=== PATIENT | male | born 1990 | race African-American/Black ===

== ENCOUNTER 2022-03-04 17:10 | Emergency (ER) | payer SELFPAY ==
--- OUTSIDE RECORDS SUMMARY | 2022-03-04 17:14 | XMS REPORT | Continuity of Care Document ---
:1990 Author Organization [facility] t Address [address] [place] [address] Care Team Providers Name Role Phone Asked, No Pcp Primary Care Physician Unavailable FRANNIE HESS Attending Clinician Unavailable Payers Payer Name Policy Type Policy Number Effective Date Expiration Date S ource Problems This patient has no known problems. Allergies, Adverse Reactions, Alerts This patient has no known allergies or adverse reactions. Social History Social Habit Start Date Stop Date Quantity Comments Source History [facility] History of tobacco Smokes tobacco [facility] Cigarettes smoked 2020-10-20 2020-10-20 [facility] current (pack per 00:00:00 00:00:00 Hospita l day) - Reported Tobacco use and 2020-10-20 2020-10-20 Smokeless tobacco [facility] exposure 00:00:00 00:00:00 non-user Hospital Alcohol intake 2020-10-20 2020-10-20 [facility]00 [facility]-drinker Hospital (finding) History [facility] 2020-10-20 2020-10-20 [facility] Frequency 00:00:00 00:00:00 Hospita l Sex Assigned At [birth year] [facility] 00[facility]00 Hospital Smoking Status Start Date Stop Date Source Smokes tobacco daily 2020-10-20 00:00:00 [facility] Medications This patient has no known medications. Procedures This patient has no known procedures. Plan of Care Planned Activity Planned Date Details Comments Source Future Scheduled 2022-02-10 HEPATITIS B VACCINES Met [facility] Test 23:18:12 (1 of 3 - 3-dose series) [code = HEPATITIS B VACCINES (1 of 3 - 3-dose series)] Future Scheduled 2022-02-10 COVID-19 VACCINE (#1) [facility] Test 23:18:12 [code = COVID-19 VACCINE (#1)] Future Scheduled 2022-02-10 Pneumococcal Vaccine: [facility] Test 23:18:12 Pediatrics (0 to 5 Years) and At-Risk Patients (6 to 64 Years) (1 - PCV) [code = Pneumococcal Vaccine: Pediatrics (0 to 5 Years) and At-Risk Patients (6 to 64 Years) (1 - PCV)] Future Scheduled 2022-02-10 Hepatitis C screening [facility] Test 23:18:12 (procedure) [code = 675329180] Future Scheduled 2022-02-10 INFLUENZA VACCINE Method [facility] Test 23:18:12 [code = INFLUENZA VACCINE] Encounters Start End Encounter Admission Attending Care Care Encounter Source Date/Time Date/Time Type Type Clinicians Facility Department ID 2021-04-29 Outpatient [facility] [id number] [place] 17:43:01 [id number] [facility] 2021-05-16 2021-05-16 Outpatient [facility] [id number] [place] 00:00:00 00:00:[address] 2021-01-26 2021-01-26 Emergency [facility] [id number] [place] 00:00:00 00:00:[address] 2020-10-20 2020-10-20 Emergency JIMENA [facility] [id number] [place] 00:00:00 00:00:00 FRANNIE [address] Results This patient has no known results.
--- NOTE | 2022-03-04 19:37 | ER ---
Nurse's Notes [facility] Name: Juan Cutler Age: 31 yrs Sex: Male : 1990 Arrival Date: 03/04/2022 Time: 17:15 Bed IW1 Private MD: Diagnosis: Encounter for screening, unspecified Presentation: 03/04 18:14 Chief complaint: Patient states: "I am on hormone therapy because I am trans and I've aa5 been having hot flashes for the last 5 years and my doctor in [place] had me on some medication for it but I just moved down here so I don't have that medication that helped with the hot flashes any more". Coronavirus screen: At this time, the client does not indicate any symptoms associated with coronavirus-19. Ebola Screen: Patient denies travel to an Ebola-affected area in the 21 days before illness onset. Initial Sepsis Screen: Does the patient meet any 2 criteria? No. Patient's initial sepsis screen is negative. Does the patient have a suspected source of infection? No. Patient's initial sepsis screen is negative. Risk Assessment: Do you want to hurt yourself or someone else? Patient reports no desire to harm self or others. Onset of symptoms was February 2022. 18:14 Method Of Arrival: Ambulatory aa5 18:14 Acuity: MICKY 5 aa5 Triage Assessment: 19:50 General: Appears in no apparent distress. comfortable, Behavior is calm, cooperative, bm7 appropriate for age. Pain: Denies pain. EENT: No deficits noted. No signs and/or symptoms were reported regarding the EENT system. Neuro: No deficits noted. Cardiovascular: No deficits noted. Respiratory: No deficits noted. GI: No deficits noted. No signs and/or symptoms were reported involving the gastrointestinal system. : No deficits noted. No signs and/or symptoms were reported regarding the genitourinary system. Derm: No deficits noted. No signs and/or symptoms reported regarding the dermatologic system. Musculoskeletal: No deficits noted. No signs and/or symptoms reported regarding the musculoskeletal system. Historical: - Allergies: 18:17 No Known Allergies; aa5 - PMHx: 18:17 Diabetes mellitus; Hypertensive disorder; aa5 - PSHx: 18:17 None; aa5 - Immunization history:: Adult Immunizations unknown. - Social history:: Smoking status: Patient reports the use of cigarette tobacco products, smokes one-half pack cigarettes per day. Screenin:24 Abuse screen: Denies threats or abuse. Nutritional screening: No deficits noted. bm7 Tuberculosis screening: No symptoms or risk factors identified. Fall Risk None identified. Assessment: 19:24 Reassessment: I havent had my estrogen in a long time and so now I am having night bm7 sweats and hot flashes. I am transition ing stated by the patient while being assessed by the PA. 19:51 Reassessment: No changes from previously documented assessment. bm7 Vital Signs: 18:14 BP 119 / 71; Pulse 70; Resp 18 S; Temp 97.0(TE); Pulse Ox 100% on R/A; Weight 142.88 kg aa5 (R); Height 6 ft. 2 in. (187.96 cm) (R); 18:14 Body Mass Index 40.44 (142.88 kg, 187.96 cm) aa5 ED Course: 17:15 Patient arrived in ED. rg4 17:20 Chandrakant Mackay PA is PHCP. cp 17:20 Chandrakant Parada MD is Attending Physician. cp 18:14 Arm band placed on. aa5 18:17 Triage completed. aa5 19:24 Patient has correct armband on for positive identification. bm7 19:24 No provider procedures requiring assistance completed. Patient maintains SpO2 bm7 saturation greater than 95% on room air. 19:51 Patient did not have IV access during this emergency room visit. bm7 Administered Medications: No medications were administered Medication: 19:24 VIS not applicable for this client. bm7 Outcome: 19:36 Discharge ordered by . cp 19:51 Discharged to home ambulatory. bm7 19:51 Condition: good 19:51 Discharge instructions given to patient, Instructed on discharge instructions, follow up and referral plans. medication usage, Demonstrated understanding of instructions, follow-up care, medications, Prescriptions given X 1. 19:51 Patient left the ED. bm7 Signatures: Marley Moser, RN RN aa5 Chandrakant Mackay PA PA Elizabeth Fernandes rg4 Laly Juarez RN RN bm7
--- NOTE | 2022-03-04 19:37 | EDPHYS ---
Physician Documentation [facility] Name: Juan Cutler Age: 31 yrs Sex: Male : 1990 Arrival Date: 03/04/2022 Time: 17:15 Bed IW1 Private MD: ED Chandrakant Tsai HPI: 03/04 19:30 This 31 yrs old Black Male presents to ER via Ambulatory with complaints of Hot Flashes.cp 19:30 Onset: The symptoms/episode began/occurred gradually, and became worse 5 day(s) ago. cp 19:30 Associated signs and symptoms: The patient has no apparent associated signs or cp symptoms. Patient reports he was receiving estrogen hormone therapy in the past. Moved back to this area from [place] earlier this year and has been off hormone therapy since November. C/o "hot flashes". Unsure of dosage of hormone therapy and currently no pcp. Historical: - Allergies: 18:17 No Known Allergies; aa5 - PMHx: 18:17 Diabetes mellitus; Hypertensive disorder; aa5 - PSHx: 18:17 None; aa5 - Immunization history:: Adult Immunizations unknown. - Social history:: Smoking status: Patient reports the use of cigarette tobacco products, smokes one-half pack cigarettes per day. ROS: 19:31 Constitutional: Positive for "hot flashes", Negative for body aches, chills, fever, cp poor PO intake. 19:31 Cardiovascular: Negative for chest pain, palpitations. 19:31 Respiratory: Negative for cough, shortness of breath, wheezing. cp 19:31 Abdomen/GI: Negative for abdominal pain, nausea, vomiting, and diarrhea. 19:31 Neuro: Negative for altered mental status, dizziness, headache, weakness. 19:31 Psych: Negative for anxiety, depression, auditory hallucinations, visual hallucinations, suicidal ideation. 19:31 All other systems are negative. Exam: 19:33 Head/Face: Normocephalic, atraumatic. cp 19:33 Constitutional: The patient appears in no acute distress, alert, awake, non-diaphoretic, non-toxic, well developed, well nourished, obese. 19:33 Eyes: Periorbital structures: appear normal, Conjunctiva: normal, no exudate, no injection, Sclera: no appreciated abnormality, Lids and lashes: appear normal, bilaterally. 19:33 ENT: External ear(s): are unremarkable, Nose: is normal, Mouth: Lips: moist, Oral cp mucosa: moist. 19:33 Chest/axilla: Inspection: normal. 19:33 Cardiovascular: Rate: normal. 19:33 Respiratory: the patient does not display signs of respiratory distress, Respirations: normal, no use of accessory muscles, no retractions, labored breathing, is not present. 19:33 Abdomen/GI: Inspection: abdomen appears normal. 19:33 Neuro: Orientation: to person, place \\T\\ time. Mentation: is normal, Motor: moves all fours, strength is normal. Vital Signs: 18:14 BP 119 / 71; Pulse 70; Resp 18 S; Temp 97.0(TE); Pulse Ox 100% on R/A; Weight 142.88 kg aa5 (R); Height 6 ft. 2 in. (187.96 cm) (R); 18:14 Body Mass Index 40.44 (142.88 kg, 187.96 cm) aa5 MDM: 19:36 Patient medically screened. cp 19:36 Data reviewed: vital signs, nurses notes. cp 19:36 Counseling: I had a detailed discussion with the patient and/or guardian regarding: the cp historical points, exam findings, and any diagnostic results supporting the discharge/admit diagnosis, the need for outpatient follow up, for definitive care, a family practitioner, to return to the emergency department if symptoms worsen or persist or if there are any questions or concerns that arise at home. Administered Medications: No medications were administered Disposition Summary: 03/04/22 19:36 Discharge Ordered Location: Home cp Problem: new cp Symptoms: are unchanged cp Condition: Stable cp Diagnosis - Encounter for screening, unspecified cp Followup: cp - With: Private Physician - When: 1 - 2 days - Reason: Recheck today's complaints Discharge Instructions: - Discharge Summary Sheet cp Forms: - Medication Reconciliation Form cp - Thank You Letter cp - Antibiotic Education cp - Prescription Opioid Use cp Prescriptions: - Vistaril 25 mg Oral capsule - take 1 capsule by ORAL route 4 times per day may take 1-2 capsules as directed; cp 30 capsule; Refills: 0, Product Selection Permitted Signatures: Marley Moser RN RN aa5 Chandrakant Mackay PA PA cp Corrections: (The following items were deleted from the chart) 03/05 16:30 03/04 19:30 Patient reports he was receiving estrogen hormone therapy in the past. cp Moved to . cp
[2022-03-06 08:08] VITALS: BP 119/71; TEMP 97; O2SAT 100
== END 2022-03-04 19:51 | disposition home or self-care (01) ==
LOC: ER 17:10
DX: R23.2 Flushing (principal); F17.210 Nicotine dependence, cigarettes, uncomplicated
CPT/HCPCS: 99284

== ENCOUNTER 2023-05-26 11:15 | Emergency (ER) | payer SELFPAY ==
--- NOTE | 2023-05-26 12:32 | ER ---
Nurse's Notes [facility] Name: Jaun Cutler Age: 32 yrs Sex: Male : 1990 Arrival Date: 05/26/2023 Time: 11:15 Bed 9 Private MD: Diagnosis: Anogenital (venereal) warts Presentation: 05/26 11:22 Chief complaint: Patient states: STD exposure, believes has HPV, noticed some lesions nj1 around his rectum. Coronavirus screen: Vaccine status: Patient reports receiving the 2nd dose of the covid vaccine. Ebola Screen: Patient denies travel to an Ebola-affected area in the 21 days before illness onset. Initial Sepsis Screen: Does the patient meet any 2 criteria? HR > 90 bpm. No. Patient's initial sepsis screen is negative. Does the patient have a suspected source of infection? No. Patient's initial sepsis screen is negative. Risk Assessment: Do you want to hurt yourself or someone else? Patient reports no desire to harm self or others. Onset of symptoms was May 25, 2023. 11:22 Method Of Arrival: Ambulatory [facility] 11:22 Acuity: MICKY 4 nj1 Triage Assessment: 12:00 General: Appears in no apparent distress. Behavior is calm, cooperative, appropriate bp for age. Pain: Complains of pain in buttocks. Historical: - Allergies: 11:25 No Known Allergies; nj1 - Home Meds: 11:27 Metformin Oral [Active]; Spironolactone Oral [Active]; estrogen [Active]; Antivert Oral nj1 [Active]; - PMHx: 11:25 diabetes mellitus; Hypertensive disorder; nj1 11:27 Vertigo; nj1 - Immunization history:: Client reports receiving the 2nd dose of the Covid vaccine. - Social history:: Smoking status: Patient reports the use of cigarette tobacco products, smokes one pack cigarettes per day. Reported history of juuling and/or vaping. Screenin:49 [facility] ED Fall Risk Assessment (Adult) History of falling in the last 3 months, bp including since admission No falls in past 3 months (0 pts). Abuse screen: Denies threats or abuse. Denies injuries from another. Nutritional screening: No deficits noted. Tuberculosis screening: No symptoms or risk factors identified. Vital Signs: 11:22 BP 111 / 64; Pulse 92; Resp 18; Temp 98.6(O); Pulse Ox 100% ; Weight 113.4 kg (R); nj1 Height 6 ft. 1 in. ; 11:22 Body Mass Index 32.98 (113.40 kg, 185.42 cm) [facility] ED Course: 11:18 Patient arrived in ED. mg5 11:19 Herson Graham MD is Attending Physician. ec2 11:24 Triage completed. pa1 11:25 Arm band placed on right wrist. pa1 12:14 Omar Alves, RN is Primary Nurse. bp 12:49 Patient has correct armband on for positive identification. Provided Education on: N/A. bp 12:49 No provider procedures requiring assistance completed. Patient did not have IV access bp during this emergency room visit. Administered Medications: No medications were administered Medication: 12:49 VIS not applicable for this client. bp Outcome: 12:31 Discharge ordered by MD. ec2 12:49 Discharged to home ambulatory, bp 12:49 Condition: stable 12:49 Discharge instructions given to patient, Instructed on discharge instructions, follow up and referral plans. medication usage, Demonstrated understanding of instructions, follow-up care, medications, Prescriptions given X 1, 12:49 Patient left the ED. bp Signatures: Omar Alves, RN RN bp Elvira Winston RN RN [facility] Margaux Ramirez [facility] Herson Graham MD MD ec2 Corrections: (The following items were deleted from the chart) 11:25 11:22 Pulse 92bpm; Resp 18bpm; Pulse Ox 100%; Temp 98.6F Oral; 113.4 kg Reported; pa1 Height 6 ft. 1 in.; BMI: 32.9; [facility]
--- NOTE | 2023-05-26 12:32 | EDPHYS ---
Physician Documentation [facility] Name: Juan Cutler Age: 32 yrs Sex: Male : 1990 Arrival Date: 05/26/2023 Time: 11:15 Bed 9 Private MD: ED Physician Herson Graham HPI: 05/26 11:40 This 32 yrs old Black Male presents to ER via Ambulatory with complaints of STD ec2 Exposure. 11:40 Patient is a 32-year-old transgender individual transitioning from male to female with ec2 preferred name of Carol and preferred pronouns of she/her, who arrives today due to concern for rectal masses. States that she had noticed rectal masses since yesterday. Patient reports no abdominal pain, no nausea or vomiting. Reports that she is concerned about STD. Denies any discharge. Reports that she does occasionally have constipation.. Historical: - Allergies: 11:25 No Known Allergies; nj1 - Home Meds: 11:27 Metformin Oral [Active]; Spironolactone Oral [Active]; estrogen [Active]; Antivert Oral nj1 [Active]; - PMHx: 11:25 diabetes mellitus; Hypertensive disorder; nj1 11:27 Vertigo; nj1 - Immunization history:: Client reports receiving the 2nd dose of the Covid vaccine. - Social history:: Smoking status: Patient reports the use of cigarette tobacco products, smokes one pack cigarettes per day. Reported history of juuling and/or vaping. ROS: 11:40 Constitutional: as per hpi ec2 Exam: 11:40 Constitutional: GEN: NAD Head: atraumatic Eyes: EOMI Ears: External ears are ec2 normal. CV: regular rate LUNGS: no respiratory distress ABD: non-distended SKIN: no evidence of rashes MSK: no evidence of trauma NEURO: moves all extremities equally Vital Signs: 11:22 BP 111 / 64; Pulse 92; Resp 18; Temp 98.6(O); Pulse Ox 100% ; Weight 113.4 kg (R); nj1 Height 6 ft. 1 in. ; 11:22 Body Mass Index 32.98 (113.40 kg, 185.42 cm) nj1 MDM: 11:23 Patient medically screened. ec2 11:40 Data reviewed: vital signs. ED course: Patient arrives today due to concern for rectal ec2 masses. Examination remarkable for well-appearing nontoxic individual is in no acute distress. Will perform rectal examination under nurse supervision.. 12:27 ED course: Rectal examination performed under nursing supervision, shows multiple warts ec2 like lesions surrounding the rectum, no hemorrhoids evident, clinically this appears like HPV. I instructed her to follow-up with primary care doctor, will provide prescription for lidocaine for topical analgesia. Instructed her on follow-up with primary care doctor.. Administered Medications: No medications were administered Disposition Summary: 05/26/23 12:31 Discharge Ordered Notes: Location: Home ec2 Condition: Stable ec2 Diagnosis - Anogenital (venereal) warts ec2 Followup: ec2 - With: Private Physician - When: - Reason: Recheck today's complaints Discharge Instructions: - Discharge Summary Sheet ec2 - Genital Warts ec2 Forms: - Medication Reconciliation Form ec2 - Thank You Letter ec2 - Antibiotic Education ec2 - Prescription Opioid Use ec2 - Patient Portal Instructions ec2 - Leadership Thank You Letter ec2 Prescriptions: - lidocaine 4 % gel - apply 1 application RECTAL route 1 to 3 times daily as needed for pain; 1 unit; ec2 Refills: 0, Product Selection Permitted Signatures: Elvira Winston RN RN nj1 Herson Graham MD MD ec2
[2023-05-26 13:21] VITALS: BP 111/64; TEMP 98.6; O2SAT 100
== END 2023-05-26 12:49 | disposition home or self-care (01) ==
LOC: ER 11:15
DX: A63.0 Anogenital (venereal) warts (principal)
CPT/HCPCS: 99283

== ENCOUNTER → 2023-08-24 | Emergency (ER) | payer OTHER, SELFPAY ==
[~2023-08-24] MED LIST: ACETAMINOPHEN 500 MG TAB ONE; LIDOCAINE 4% PATCH ONE; methocarbamoL 500 MG TAB ONE
--- NOTE | 2023-08-24 17:16 | EDPHYS ---
Physician Documentation [facility] Name: Juan Cutler Age: 32 yrs Sex: Male : 1990 Arrival Date: 08/24/2023 Time: 16:41 Bed IW7 Private MD: ED Physician Herson Graham HPI: 08/23 17:16 This 32 yrs old Black Male presents to ER via Ambulatory with complaints of Back Pain. ec2 17:16 Patient arrives today for evaluation of upper back pain. Patient reports that they have ec2 been having back pain for approximately 4 days. Patient reports no falls or injuries or trauma no MVC's, no specific onset trigger. Patient reports symptoms are worsened with positional movements, improved with an activity. Has been taking ibuprofen with improvement in symptoms.. Historical: - Allergies: 17:02 No Known Allergies; iw - Home Meds: 17:07 Metformin Oral [Active]; Spironolactone Oral [Active]; ll1 - PMHx: 17:02 diabetes mellitus; Hypertensive disorder; Vertigo; iw 17:07 HPV; ll1 - PSHx: 17:07 endoscopy/colonscopy; ll1 - Immunization history:: Adult Immunizations up to date. - Social history:: Smoking status: Patient reports the use of cigarette tobacco products, smokes one-half pack cigarettes per day. ROS: 17:16 Constitutional: as per hpi ec2 Exam: 17:16 Constitutional: GEN: NAD Head: atraumatic Eyes: EOMI Ears: External ears are ec2 normal. CV: regular rate LUNGS: no respiratory distress ABD: non-distended SKIN: no evidence of rashes MSK: no evidence of trauma, reproducible left upper back TTP without deformities or crepitus, no C/T/L-spine TTP or deformity. NEURO: moves all extremities equally Vital Signs: 17:08 BP 101 / 74; Pulse 71; Resp 18; Temp 97.3; Pulse Ox 100% ; Weight 108.86 kg; Height 6 ll1 ft. 1 in. ; Pain 7/10; 17:34 Pulse 70; Resp 17; Temp 97.3; Pulse Ox 100% ; Pain 7/10; ll1 17:08 Body Mass Index 31.66 (108.86 kg, 185.42 cm) ll1 17:08 Pain Scale: Adult ll1 17:34 Pain Scale: Adult ll1 MDM: 17:15 Patient medically screened. ec2 17:16 Data reviewed: vital signs. ED course: Patient arrives today for evaluation of upper ec2 back pain. Examination remarkable for well-appearing nontoxic individual with reproducible back TTP. Will prescribe the patient Robaxin, instructed them on Tylenol use for pain. Suspect musculoskeletal pain. Doubt rib fracture given lack of injury, doubt spinal cord pathology. Accordingly will defer any advanced imaging such as CT scan of the chest or chest x-ray. . Administered Medications: 17:34 Drug: Acetaminophen PO 1000 mg PO once Route: PO; ll1 17:36 Follow up: Response: No adverse reaction ll1 17:34 Drug: Methocarbamol PO 500 mg PO once Route: PO; ll1 17:36 Follow up: Response: No adverse reaction ll1 17:34 Drug: Lidoderm Topical Patch 5 % (700 mg/patch) 1 patches Topical once; leave on for 12 ll1 hours; cover most painful area; may cut into smaller pieces Route: Topical; Site: affected area; 17:36 Follow up: Response: No adverse reaction ll1 Disposition Summary: 08/24/23 17:15 Discharge Ordered Notes: Location: Home ec2 Condition: Stable ec2 Diagnosis - Upper Back Pain ec2 Followup: ec2 - With: Private Physician - When: - Reason: Re-evaluation by your physician Discharge Instructions: - Discharge Summary Sheet ll1 - Acute Back Pain, Adult ec2 Forms: - Work release form ll1 - Medication Reconciliation Form ec2 - Thank You Letter ec2 - Antibiotic Education ec2 - Prescription Opioid Use ec2 - Patient Portal Instructions ec2 - Leadership Thank You Letter ec2 Prescriptions: - methocarbamol 500 mg Oral tablet - take 2 tablets ORAL route 4 times per day; 30 tablet; Refills: 0, Product ec2 Selection Permitted Signatures: Romelia Mosley RN RN iw Hayde Botello RN RN ll1 Herson Graham MD MD ec2 Corrections: (The following items were deleted from the chart) 17:14 17:07 Social history: Smoking status: Patient denies any tobacco usage or history of. ll1 ll1
--- NOTE | 2023-08-24 17:16 | ER ---
Nurse's Notes [facility] Name: Juan Cutler Age: 32 yrs Sex: Male : 1990 Arrival Date: 08/24/2023 Time: 16:41 Bed IW7 Private MD: Diagnosis: Upper Back Pain Presentation: 08/23 17:05 Chief complaint: Patient states: Upper and mid back pain for 4 days. No trauma or ll1 falls. Coronavirus screen: Client denies travel out of the [place] in the last 14 days. At this time, the client does not indicate any symptoms associated with coronavirus-19. Ebola Screen: Patient denies travel to an Ebola-affected area in the 21 days before illness onset. Initial Sepsis Screen: Does the patient meet any 2 criteria? No. Patient's initial sepsis screen is negative. Does the patient have a suspected source of infection? No. Patient's initial sepsis screen is negative. Risk Assessment: Do you want to hurt yourself or someone else? Patient reports no desire to harm self or others. Onset of symptoms was August 21, 2023. 17:05 Method Of Arrival: Ambulatory ll1 17:05 Acuity: MICKY 4 ll1 Triage Assessment: 17:06 General: Appears uncomfortable, Behavior is calm, cooperative, appropriate for age. ll1 Pain: Complains of pain in back Quality of pain is described as aching. Musculoskeletal: Circulation, motion, and sensation intact. Capillary refill < 3 seconds, Reports pain in upper and mid back. Historical: - Allergies: 17:02 No Known Allergies; iw - Home Meds: 17:07 Metformin Oral [Active]; Spironolactone Oral [Active]; ll1 - PMHx: 17:02 diabetes mellitus; Hypertensive disorder; Vertigo; iw 17:07 HPV; ll1 - PSHx: 17:07 endoscopy/colonscopy; ll1 - Immunization history:: Adult Immunizations up to date. - Social history:: Smoking status: Patient reports the use of cigarette tobacco products, smokes one-half pack cigarettes per day. Screenin:35 [facility] ED Fall Risk Assessment (Adult) History of falling in the last 3 months, ll1 including since admission No falls in past 3 months (0 pts) Impaired Gait No (0 pts) Mobility Assist Device Used Yes (1 pt) Score/Fall Risk Level 0 - 2 = Low Risk Oriented to surroundings, Maintained a safe environment. Abuse screen: Denies threats or abuse. Nutritional screening: No deficits noted. Tuberculosis screening: No symptoms or risk factors identified. Assessment: 17:35 Reassessment: No changes from previously documented assessment. Patient and/or family ll1 updated on plan of care and expected duration. Pain level reassessed. Patient is alert, oriented x 3, equal unlabored respirations, skin warm/dry/pink. Vital Signs: 17:08 BP 101 / 74; Pulse 71; Resp 18; Temp 97.3; Pulse Ox 100% ; Weight 108.86 kg; Height 6 ll1 ft. 1 in. ; Pain 7/10; 17:34 Pulse 70; Resp 17; Temp 97.3; Pulse Ox 100% ; Pain 7/10; ll1 17:08 Body Mass Index 31.66 (108.86 kg, 185.42 cm) ll1 17:08 Pain Scale: Adult ll1 17:34 Pain Scale: Adult ll1 ED Course: 16:47 Patient arrived in ED. ae5 16:52 Herson Graham MD is Attending Physician. ec2 17:02 Arm band placed on. iw 17:06 Triage completed. ll1 17:35 Patient has correct armband on for positive identification. Provided Education on: no ll1 drinking or driving on prescribed medications. 17:35 No provider procedures requiring assistance completed. Patient did not have IV access ll1 during this emergency room visit. Administered Medications: 17:34 Drug: Acetaminophen PO 1000 mg PO once Route: PO; ll1 17:36 Follow up: Response: No adverse reaction ll1 17:34 Drug: Methocarbamol PO 500 mg PO once Route: PO; ll1 17:36 Follow up: Response: No adverse reaction ll1 17:34 Drug: Lidoderm Topical Patch 5 % (700 mg/patch) 1 patches Topical once; leave on for 12 ll1 hours; cover most painful area; may cut into smaller pieces Route: Topical; Site: affected area; 17:36 Follow up: Response: No adverse reaction ll1 Medication: 17:36 VIS not applicable for this client. ll1 Outcome: 17:15 Discharge ordered by . ec2 17:35 Discharged to home ambulatory, ll1 17:35 Condition: stable 17:35 Discharge instructions given to patient, Instructed on discharge instructions, follow up and referral plans. no drinking with medication, no driving heavy equipment, medication usage, Demonstrated understanding of instructions, follow-up care, medications, Prescriptions given X 1, 17:36 Patient left the ED. ll1 Signatures: Romelia Mosley RN Hayde Cross RN RN ll1 Herson Graham MD MD ec2 Ruby Pulido ae5 Corrections: (The following items were deleted from the chart) 17:14 17:07 Social history: Smoking status: Patient denies any tobacco usage or history of. ll1 ll1 17:14 17:08 Resp 18bpm; Temp 97.3F; Pain 7/10, Adult; ll1 1
[2023-08-24 18:29] VITALS: BP 101/74; TEMP 97.3; O2SAT 100
== END ==
LOC: ER 16:41
DX: M54.9 Dorsalgia, unspecified (principal); E11.9 Type 2 diabetes mellitus without complications; I10 Essential (primary) hypertension; F17.210 Nicotine dependence, cigarettes, uncomplicated
CPT/HCPCS: J2001

== ENCOUNTER 2024-08-28 21:26 | Emergency (ER) | payer OTHER, SELFPAY ==
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
[2024-08-29] MEDS ORDERED: TRAMADOL HCL 50 MG TAB ONE (01:37)
[2024-08-29] MEDS ORDERED: IBUPROFEN 400 MG TAB ONE (01:37)
--- NOTE | 2024-08-29 05:39 | RAD REPORT ---
EXAM DESCRIPTION: Lumbar Spine 3 Views [employer]: XR LUMBAR SPINE 2-3 VIEWS CLINICAL HISTORY: 33 years Male, PAIN COMPARISON: None. FINDINGS: 3 views of the lumbar spine. Normal lordosis. No acute fracture or vertebral body height loss. No sub luxation. Intervertebral disc height is relatively well-preserved. Pedicles are symmetric. Visualized lower ribs and bony pelvis appear intact. IMPRESSION: No acute radiographic abnormality. Electronically signed by: Bri Servin MD 08/29/2024 01:31 AM CDT Due to temporary technical issues with the PACS/[employer] reporting system, reports are being trisha d by the in-house radiologist without review as a courtesy to ensure prompt reporting the interpreting radiologist is fully responsible for the content of the report. Transcribed Date/Time: 08/29/2024 5:39 AM
--- NOTE | 2024-08-29 05:40 | RAD REPORT ---
EXAM: XR Thoracic Spine, 2 Views CLINICAL HISTORY: The patient is 33 years old and is Male; PAIN TECHNIQUE: Frontal and lateral views of the thoracic spine. COMPARISON: No relevant prior studies available. FINDINGS: VERTEBRAE: Unremarkable. No acute fracture. Normal alignment. DISC SPACES: No acute findings. No significant narrowing. SOFT TISSUES: Unremarkable. IMPRESSION: Normal thoracic spine radiographs. Electronically signed by: Anahi Anthony MD 08/29/2024 01:31 AM CDT RP Due to temporary technical issues with the PACS/[employer] reporting system, reports are being trisha d by the in-house radiologist without review as a courtesy to ensure prompt reporting the interpreting radiologist is fully responsible for the content of the report. Transcribed Date/Time: 08/29/2024 5:39 AM
[2024-08-29 09:58] VITALS: TEMP 99.3; O2SAT 100
[2024-08-29 09:59] VITALS: BP 110/68
== END 2024-08-29 01:44 | disposition home or self-care (01) ==
LOC: ER 21:26
DX: M54.50 Low back pain, unspecified (principal); V49.59XA Passenger injured in collision with other motor vehicles in traffic accident, initial encounter
CPT/HCPCS: 72070; 72100

== ENCOUNTER 2025-01-16 21:50 | Emergency (ER) | payer SELFPAY ==
[2025-01-16 23:02] LABS: Absolute Lymphocytes (CBC) 2.6 K/uL (0.7-4.9); Hematocrit 37.8 % (39.6-49.0); Hemoglobin 12.9 g/dL (13.6-17.9); MCH 28.5 pg (27.0-35.0); MCHC 34.2 g/dL (32.0-36.0); MCV 83.2 fL (80-100); MPV 7.4 fL (7.6-11.3); Nucleated RBC Absolute Count 0.0 (0-0); Nucleated Red Blood Cells % 0.1 % (0-0); RBC Red Blood Cell Count 4.54 M/uL (4.33-5.43); White Blood Count 4.80 thou/uL (4.3-10.9)
[2025-01-16 23:04] LABS: ALT/SGPT 18 U/L (16-61); Albumin 3.6 g/dL (3.4-5.0); Albumin/Globulin Ratio 1.1 (1.1-1.8); Alkaline Phosphatase 61 U/L (45-117); Anion Gap 7.6 mEq/L (5.0-15.0); BUN Blood Urea Nitrogen 15 mg/dL (7-18); Globulin 3.4 g/dL (2.3-3.5); Glucose Level 97 mg/dL (74-106); NT PRO-BNP 12 pg/mL (<125); Potassium 3.6 mEq/L (3.5-5.1)
[2025-01-16 23:06] LABS: AST/SGOT < 10 U/L (15-37)
--- NOTE | 2025-01-16 23:25 | EDPHYS ---
Physician Documentation [facility] Name: Juan Cutler Age: 34 yrs Sex: Male : 1990 Arrival Date: 01/16/2025 Time: 21:50 Bed 18 Private MD: ED Physician Solomon Lauren HPI: 01/16 22:20 This 34 yrs old Black Male presents to ER via Unassigned with complaints of Swelling of rn Lower Extremity, Pt prefers to go by the name Carol. 22:20 Patient reports several weeks of lower extremity swelling. Reports tightness in the rn feet and ankles. Reports in the past has had a DVT but states only took aspirin for it. No difficulty breathing. No chest pain. No trauma. No weakness or numbness. Patient does report she is diabetic.. Historical: - Allergies: 22:22 Iodine; br2 - PMHx: 22:22 diabetes mellitus; HPV; cancer; Hypertensive disorder; rectal cancer; Vertigo; br2 - PSHx: 22:22 endoscopy/colonscopy; lesions removed from rectum (October 11); br2 - Immunization history:: Adult Immunizations not up to date. - Infectious Disease History:: Denies. - Family history:: not pertinent. - Social history:: Smoking status: Patient reports the use of cigarette tobacco products, smokes one pack cigarettes per day. Patient/guardian denies using alcohol, street drugs. - Hospitalizations: : No recent hospitalization is reported. ROS: 22:20 Constitutional: Negative for fever, chills, and weight loss, Cardiovascular: Negative rn for chest pain, palpitations Respiratory: Negative for shortness of breath, cough, wheezing, and pleuritic chest pain, Abdomen/GI: Negative for abdominal pain, nausea, vomiting, diarrhea, and constipation, MS/Extremity: Positive for lower extremity edema Skin: Negative for injury, rash, and discoloration, Neuro: Negative for headache, weakness, numbness, tingling, and seizure, Exam: 22:20 Constitutional: This is a well developed, well nourished patient who is awake, alert, rn and in no acute distress. Ambulatory to room without assistance or difficulty Cardiovascular: Regular rate and rhythm. No pulse deficits. Respiratory: Speaking full sentences, unlabored. No increased work of breathing, no retractions or nasal flaring. MS/ Extremity: Pulses equal, no cyanosis. Neurovascular intact. Full, normal range of motion. Equal circumference. No pitting edema noted. No discoloration. Neuro: Awake and alert, GCS 15. Normal gait. Vital Signs: 22:20 BP 109 / 71; Pulse 70; Resp 18; Temp 97.1(TE); Pulse Ox 96% on R/A; Weight 104.33 kg; br2 Height 6 ft. 0 in. ; Pain 5/10; 22:35 BP 97 / 48; Pulse 64; Resp 17; Pulse Ox 98% ; Pain 0/10; rg5 23:26 BP 96 / 53; Pulse 56; Resp 18; Pulse Ox 98% ; rg5 22:20 Body Mass Index 31.19 (104.33 kg, 182.88 cm) br2 22:20 Pain Scale: Adult br2 22:35 Pain Scale: Adult rg5 MDM: 21:54 Medical Screening Exam initiated rn 23:22 Differential diagnosis: Dependent edema, renal failure, liver failure, heart failure, rn nonspecific edema. Data reviewed: vital signs, nurses notes, lab test result(s), and as a result, I will discharge patient. Care significantly affected by the following chronic conditions: Diabetes. Counseling: I had a detailed discussion with the patient and/or guardian regarding the historical points, exam findings, and any diagnostic results supporting the discharge/admit diagnosis, lab results, radiology results, the need for outpatient follow up, to return to the emergency department if symptoms worsen or persist or if there are any questions or concerns that arise at home. Response to treatment: There is no appreciated change of the patient's symptoms at this time, and as a result, I will discharge patient. Special discussion: I discussed with the patient/guardian in detail that at this point there is no indication for admission to the hospital. It is understood, however, that if the symptoms persist or worsen the patient needs to return immediately for re-evaluation. Based on the history and exam findings, there is no indication for further emergent testing or inpatient evaluation. I discussed with the patient/guardian the need to see the primary care provider for further evaluation of the symptoms. ED course: No acute findings and workup. No evidence of acute renal/liver/heart failure. Ultrasound bilateral lower extremity negative for DVT. Will discharge home with return precautions and PCP follow-up for further workup.. 23:24 ED course: Received verbal results from remanufacturing technician, states negative for DVT in rn either extremity. 01/16 22:17 Order name: CBC with Diff; Complete Time: 23:28 rn 01/16 22:17 Order name: CMP; Complete Time: 23:22 rn 01/16 22:17 Order name: BNP; Complete Time: 23:22 rn 01/16 23:07 Order name: Manual Differential; Complete Time: 23:28 EDMS 01/16 22:17 Order name: Extrem Venous W Compression Marek US rn 01/16 22:17 Order name: IV Start; Complete Time: 22:32 rn Administered Medications: No medications were administered Disposition Summary: 01/16/25 23:24 Discharge Ordered Notes: Location: Home rn Problem: new rn Symptoms: have improved rn Condition: Stable rn Diagnosis - Edema, unspecified rn Followup: rn - With: Private Physician - When: As needed - Reason: Recheck today's complaints, Re-evaluation by your physician Discharge Instructions: - Discharge Summary Sheet rn - Peripheral Edema rn Forms: - Medication Reconciliation Form rn - Antibiotic claim attorney - Prescription Opioid Use rn - Patient Portal Instructions rn - Leadership Thank You Letter rn Signatures: Dispatcher [employer] EDMS Solomon Lauren MD MD rn Riddle, Belinda, RN RN br2 Corrections: (The following items were deleted from the chart) 22:18 22:18 Extrem Venous W Compression Marek+US.RAD.BRZ ordered. EDMS EDMS 22:18 22:18 CBC+H.LAB.BRZ ordered. EDMS EDMS 22:18 22:18 COMPREHENSIVE METABOLIC PANEL+C.LAB.BRZ ordered. EDMS EDMS 22:18 22:18 PROBNP+C.LAB.BRZ ordered. EDMS EDMS
--- NOTE | 2025-01-16 23:25 | ER ---
Nurse's Notes [facility] Name: Juan Cutler Age: 34 yrs Sex: Male : 1990 Arrival Date: 01/16/2025 Time: 21:50 Bed 18 Private MD: Diagnosis: Edema, unspecified Presentation: 01/16 22:20 Chief complaint: Patient states: PT C/O BLE EDEMA FOR THE LAST 2-3 WEEKS, RLE PAIN br2 (THROBBING). Coronavirus screen: Client denies travel out of the [place] in the last 14 days. Ebola Screen: Patient denies exposure to infectious person. Initial Sepsis Screen: Does the patient meet any 2 criteria? No. Patient's initial sepsis screen is negative. Does the patient have a suspected source of infection? No. Patient's initial sepsis screen is negative. Risk Assessment: Do you want to hurt yourself or someone else? Patient reports no desire to harm self or others. Onset of symptoms is unknown. 22:20 Method Of Arrival: Ambulatory br2 22:20 Acuity: MICKY 3 br2 Triage Assessment: 22:22 General: Appears in no apparent distress. comfortable, Behavior is calm, cooperative. br2 Pain: Complains of pain in lateral aspect of right knee, lateral aspect of right calf, right ankle and lateral aspect of right foot Pain currently is 5 out of 10 on a pain scale. Historical: - Allergies: 22:22 Iodine; br2 - PMHx: 22:22 diabetes mellitus; HPV; cancer; Hypertensive disorder; rectal cancer; Vertigo; br2 - PSHx: 22:22 endoscopy/colonscopy; lesions removed from rectum (October 11); br2 - Immunization history:: Adult Immunizations not up to date. - Infectious Disease History:: Denies. - Family history:: not pertinent. - Social history:: Smoking status: Patient reports the use of cigarette tobacco products, smokes one pack cigarettes per day. Patient/guardian denies using alcohol, street drugs. - Hospitalizations: : No recent hospitalization is reported. Screenin:[address] [facility] ED Fall Risk Assessment (Adult) History of falling in the last 3 months, rg5 including since admission No falls in past 3 months (0 pts) Confusion or Disorientation No (0 pts) Intoxicated or Sedated No (0 pts) Impaired Gait No (0 pts) Mobility Assist Device Used No (0 pt) Altered Elimination No (0 pt) Score/Fall Risk Level 0 - 2 = Low Risk Oriented to surroundings, Maintained a safe environment. Abuse screen: Denies threats or abuse. Tuberculosis screening: No symptoms or risk factors identified. Assessment: 22:35 General: Appears in no apparent distress. comfortable, Behavior is calm, cooperative, rg5 appropriate for age. Neuro: Level of Consciousness is awake, alert, obeys commands, Oriented to person, place, time, situation. Cardiovascular: Denies chest pain, Patient's skin is warm and dry. Respiratory: Airway is patent Trachea midline Respiratory effort is even, unlabored, Respiratory pattern is regular, symmetrical. GI: Abdomen is round non-distended. : No signs and/or symptoms were reported regarding the genitourinary system. EENT: No signs and/or symptoms were reported regarding the EENT system. Derm: Skin is intact, Skin is dry, Skin is normal, Skin temperature is warm. Musculoskeletal: Circulation, motion, and sensation intact. Range of motion: intact in all extremities, Swelling present in right leg and left leg. 23:26 Reassessment: Patient and/or family updated on plan of care and expected duration. Pain rg5 level reassessed. Patient is alert, oriented x 3, equal unlabored respirations, skin warm/dry/pink. Vital Signs: 22:20 BP 109 / 71; Pulse 70; Resp 18; Temp 97.1(TE); Pulse Ox 96% on R/A; Weight 104.33 kg; br2 Height 6 ft. 0 in. ; Pain 5/10; 22:35 BP 97 / 48; Pulse 64; Resp 17; Pulse Ox 98% ; Pain 0/10; rg5 23:26 BP 96 / 53; Pulse 56; Resp 18; Pulse Ox 98% ; rg5 22:20 Body Mass Index 31.19 (104.33 kg, 182.88 cm) br2 22:20 Pain Scale: Adult br2 22:35 Pain Scale: Adult rg5 ED Course: 21:54 Patient arrived in ED. jj6 21:54 Solomon Lauren MD is Attending Physician. rn 22:21 Sammy Giron RN is Primary Nurse. rg5 22:21 Triage completed. br2 22:22 Arm band placed on right wrist. br2 22:35 Patient has correct armband on for positive identification. Bed in low position. Call rg5 light in reach. Side rails up X 1. Door closed. Noise minimized. Warm blanket given. 22:35 No provider procedures requiring assistance completed. Inserted saline lock: 20 gauge rg5 in right antecubital area, using aseptic technique. Blood collected. Flushed with 10 mL NS. 22:48 Extrem Venous W Compression Marek US In Process Unspecified. EDMS 23:32 IV discontinued, bleeding controlled, No redness/swelling at site. Pressure dressing rg5 applied. Administered Medications: No medications were administered Medication: 22:35 VIS not applicable for this client. rg5 Outcome: 23:24 Discharge ordered by . rn 23:32 Discharged to home ambulatory, rg5 23:32 Condition: stable 23:32 Discharge instructions given to patient, 23:33 Patient left the ED. rg5 Signatures: Dispatcher [employer] EDMS Solomon Lauren MD MD rn Jeffries, Jennifer jj6 Gallardo, Rommel RN RN rg5 Esthela Dunn RN RN br2
[2025-01-16 23:27] LABS: Differential Total Cells Count 100; Segmented Neutrophils 31 % (40-80)
[2025-01-16 23:28] LABS: Blood Morphology Comment NOT SEEN (NOT SEEN)
[2025-01-16 23:37] VITALS: TEMP 97.1
[2025-01-16 23:38] VITALS: O2SAT 98
[2025-01-16 23:40] VITALS: BP 96/53
--- NOTE | 2025-01-17 07:47 | RAD REPORT ---
EXAMINATION: US BILATERAL LOWER EXTREMITY VENOUS DOPPLER CLINICAL INDICATION: PAIN TECHNIQUE: Complete bilateral duplex sonography of the BILATERAL lower extremity veins was performed. The examination included compression for vein patency, color Doppler imaging and flow augmentation in response to distal compression of the distal external iliac, common femoral, femoral, popliteal, t ibial, and great and small saphenous veins. COMPARISON: No prior exam. FINDINGS: Duplex sonography testing of the veins of the BILATERAL lower extremity was performed. Color flow luz elena ging shows all veins to be compressible with [id number] color filling. Pulsatile and phasic flow is present within all lower extremity deep and superficial veins examined. IMPRESSION: There is no deep vein or superficial vein thrombosis.
== END 2025-01-16 23:33 | disposition home or self-care (01) ==
LOC: ER 21:50
DX: R60.9 Edema, unspecified (principal); E11.9 Type 2 diabetes mellitus without complications; I10 Essential (primary) hypertension; F17.210 Nicotine dependence, cigarettes, uncomplicated
CPT/HCPCS: 36415; 80053; 83880; 85025; 93970; 99284